=== PATIENT | female | born 1990 | race Hispanic/Latino ===

== ENCOUNTER 2018-07-28 00:31 | Emergency (ER) | payer OTHER ==
[2018-07-28] MEDS ORDERED: DEXAMETHASONE SOD PHOSPHATE 10MG/ML 1ML VIAL ONE (01:10)
== END 2018-07-28 01:24 | disposition home or self-care (01) ==
LOC: EDH 00:31
DX: T78.49XA Other allergy, initial encounter (principal); L03.811 Cellulitis of head [any part, except face]; X58.XXXA Exposure to other specified factors, initial encounter
CPT/HCPCS: 96372; 99283; J1100